=== PATIENT | male | born 2000 | race Caucasian/White ===

== ENCOUNTER 2023-03-17 14:26 | Emergency (ER) | payer OTHER ==
[~2023-03-17] VITALS: Ht 182.9 cm; Wt 88.6 kg
[2023-03-17 14:27] VITALS: BP 131/62; TEMP 98.5; O2SAT 98
== END 2023-03-17 18:34 | disposition home or self-care (01) ==
LOC: M ED 14:26
DX: M75.92 Shoulder lesion, unspecified, left shoulder (principal)